=== PATIENT | female | born 1950 | race Caucasian/White ===

== ENCOUNTER → 2018-09-23 | Outpatient (CLI) | payer MEDICARE, BC, OTHER ==
[~2018-09-23] MED LIST: CENTTAB PO; CITR500T PO; GLUCPOW24 PO; HYDR-3715 PO; VIACTIV 500-5001 CHW PO
--- NOTE | 2018-09-24 13:33 | REP ---
Outside film interpretation: Bilateral screening and diagnostic mammography and focused breast sonography from [facility] dated August 31, 2018, September 02, 2018. Review of original reports is confusing. The diagnostic mammography report addendum created on September 03, 2018 concludes: BI-RADS category 2 benign finding recommending routine yearly followup. Before the addendum, a BI-RADS 4 conclusion was reported on the mammogram and there is a report of ultrasound recommending stereotactic biopsy based mammographic but not sonographic findings. I have prior films available from August 26, 2017. Findings: There are extensive post-treatment changes in the breast on the left with contour deformity and scarring in the upper outer quadrant and extensive benign branching macrocalcification. There are surgical clips in the left axilla. Findings are most compatible with post-treatment changes for breast cancer on the left. These are unchanged from the August 2017 prior study. There is no suspicious mammographic abnormality observed on the left. The diagnostic images on the left show no suspicious abnormality. On the right, the findings on the screening study from August 31, 2018 and the recall diagnostic study from September 02, 2018 show breast parenchymal markings to be unchanged from the 2018 exam as well. No suspicious mammographic finding is noted on the right. The sonography images of the right breast at 12 o'clock and right axilla show no suspicious abnormality. The left breast sonography images also show heterogeneous fibroglandular background echotexture but no suspicious sonographic finding. Impression: BI-RADS category 2 benign findings. Post-treatment changes extensively noted on the left but unchanged. No suspicious abnormality. Bilateral repeat screening mammography recommended in 1 year. Electronically Signed by Cisco Hurtado MD 09/24/2018 05:30 P
== END ==
LOC: M RAD 14:24
PROVIDERS: ATTEND Surgery
DX: Z85.3 Personal history of malignant neoplasm of breast (principal)

== ENCOUNTER → 2019-09-20 | Outpatient (CLI) | payer MEDICARE, BC ==
--- NOTE | 2019-10-07 10:48 | REPMRS ---
Patient History Patient has history of breast cancer. Digital Woman Screen Mammo: September 20, 2019 - Exam #: [id number] Bilateral CC and MLO view(s) were taken. Technologist: Rosa Reyes, Technologist Prior study comparison: August 26, 2017, bilateral digital mammo screening bilat, performed at [facility]. November 19, 2012, bilateral digital mammo screening bilat, performed at [facility]. November 18, 2011, bilateral digital mammo screening bilat, performed at [facility]. FINDINGS: The breast tissue is heterogeneously dense. This may lower the sensitivity of mammography. The Volpara volumetric breast density category is: C. There are stable post treatment changes in the left breast. There is a moderate amount of heterogeneously dense fibroglandular tissue which is fairly symmetric. There is no interval development of dominant mass, architectural distortion, or grouped microcalcification typical of malignancy. There has been no change in the appearance of the mammogram from the prior studies. 3-D tomosynthesis shows no additional findings. Assessment: BI-RADS/ACR category 2 mammogram. Benign Findings. Recommendation Routine screening mammogram of both breasts in 1 year (for women over age 40). This mammogram was interpreted with the aid of an FDA-approved computer-aided dectection system. Electronically Signed By: Flex Hurtado MD 10/07/19 [id number]
== END ==
LOC: M WHC 06:21
PROVIDERS: ATTEND Surgery
DX: Z12.31 Encounter for screening mammogram for malignant neoplasm of breast (principal); Z85.3 Personal history of malignant neoplasm of breast

== ENCOUNTER → 2020-10-09 | Outpatient (CLI) | payer MEDICARE, BC, OTHER ==
--- NOTE | 2020-10-09 10:17 | REPMRS ---
Patient History The patient states she has not had a clinical breast exam in over a year. Patient is postmenopausal, has history of cancer in the left breast at age 42, had previous chest radiation therapy at age 42, has history of cancer in the left breast at age 41, and had previous chemotherapy. Malignant lumpectomy of the left breast, 1992. No Hormone Replacement Therapy Moderna vaccine 06/01/20 right arm. 07/03/20 right arm. Patient states no breast complaints today. Patient has signed MRS History Sheet. Digital Woman Screen Mammo: October 09, 2020 - Exam #: [id number] Bilateral CC and MLO view(s) were taken. Technologist: Lupe Hnery, Prior study comparison: September 20, 2019, bilateral digital woman screen mammo performed at [facility]. August 26, 2017, bilateral digital mammo screening bilat, performed at [facility]. November 19, 2012, bilateral digital mammo screening bilat, performed at [facility]. FINDINGS: The breast tissue is heterogeneously dense. This may lower the sensitivity of mammography. The Volpara volumetric breast density category is: C. There are stable post treatment changes again noted in the left breast. There is a moderate amount of heterogeneously dense fibroglandular tissue which is fairly symmetric. There is no interval development of dominant mass, architectural distortion, or grouped microcalcification typical of malignancy. There has been no change in the appearance of the mammogram from the prior studies. 3-D tomosynthesis shows no additional findings. Assessment: BI-RADS/ACR category 2 mammogram. Benign Findings. Recommendation Routine screening mammogram of both breasts in 1 year (for women over age 40). This mammogram was interpreted with the aid of an FDA-approved computer-aided dectection system. Electronically Signed By: Flex Hurtado MD 10/09/20 [id number]
== END ==
LOC: M WHC 09:16
PROVIDERS: ATTEND Surgery
DX: Z12.31 Encounter for screening mammogram for malignant neoplasm of breast (principal); Z85.3 Personal history of malignant neoplasm of breast; Z92.21 Personal history of antineoplastic chemotherapy; Z92.3 Personal history of irradiation

== ENCOUNTER → 2020-10-28 | Outpatient (CLI) | payer MEDICARE, BC, OTHER ==
[~2020-10-28] MED LIST changes: +ATOR1TAB21; +CALCCAP4 PO; +CIDA500T2 PO; +CLAR10CA3 PO; +D31000TA2 PO; +FISH1000 PO; +HYDR12.55; +LOSA100T50; +MULTTAB61 PO; +VITA-175 PO; +VITA-243 PO
== END ==
LOC: M LABSMTC 10:46
PROVIDERS: ATTEND Anesthesiology
DX: Z01.812 Encounter for preprocedural laboratory examination (principal); Z20.822 Contact with and (suspected) exposure to COVID-19

== ENCOUNTER 2020-11-02 08:43 | Day surgery (SDC) | payer MEDICARE, BC, OTHER ==
[~2020-11-02] VITALS: Ht 160 cm; Wt 86.6 kg
[~2020-11-02 08:43] MED LIST changes: +LIDOCAINE 2% 100MG/5ML SDV (FOR ANES.) As Ordered ONE; +NS 1,000 ML IV ONE; +propofoL 200 MG/20 ML VIAL As Ordered ONE
--- NOTE | 2020-11-02 10:46 | ROOR ---
Patient Name: Nadine Galdamez Procedure Date: 11/02/2020 10:04 AM Date of : 1950 Age: 70 Room: [facility] Gender: Female Note Status: Finalized Procedure: Colonoscopy Indications: Screening in patient at increased risk: Family history of 1st-degree relative with colorectal cancer, Last colonoscopy: August 2015 Providers: Jefferson Silva MD Referring MD: Hailey CONTRERAS NP Requesting Provider: Medicines: Monitored Anesthesia Care Complications: No immediate complications. Procedure: Pre-Anesthesia Assessment: - Prior to the procedure, a History and Physical was performed, and patient medications and allergies were reviewed. The patient is competent. The risks and benefits of the procedure and the sedation options and risks were discussed with the patient. All questions were answered and informed consent was obtained. Patient identification and proposed procedure were verified by the physician, the nurse and the inhalation therapist in the procedure room. Mental Status Examination: normal. Airway Examination: normal oropharyngeal airway and neck mobility. Prophylactic Antibiotics: The patient does not require prophylactic antibiotics. Prior Anticoagulants: The patient has taken no previous anticoagulant or antiplatelet agents. ASA Grade Assessment: III - A patient with severe systemic disease. After reviewing the risks and benefits, the patient was deemed in satisfactory condition to undergo the procedure. The anesthesia plan was to use monitored anesthesia care (MAC). Immediately prior to administration of medications, the patient was re-assessed for adequacy to receive sedatives. The heart rate, respiratory rate, oxygen saturations, blood pressure, adequacy of pulmonary ventilation, and response to care were monitored throughout the procedure. The physical status of the patient was re-assessed after the procedure. The Colonoscope was introduced through the anus and advanced to the cecum, identified by appendiceal orifice and ileocecal valve. The colonoscopy was performed without difficulty. The patient tolerated the procedure well. The quality of the bowel preparation was excellent. Findings: The perianal and digital rectal examinations were normal. Multiple medium-mouthed diverticula were found in the sigmoid colon and descending colon. There was evidence of a prior end-to-end colo-rectal anastomosis in the recto-sigmoid colon. This was patent and was characterized by healthy appearing mucosa. Impression: - Diverticulosis in the sigmoid colon and in the descending colon. - Patent end-to-end colo-rectal anastomosis, characterized by healthy appearing mucosa. - No specimens collected. Recommendation: - Discharge patient to home. - Resume previous diet. - Continue present medications. Procedure Code(s): --- Professional --- G0105, Colorectal cancer screening; colonoscopy on individual at high risk Diagnosis Code(s): --- Professional --- Z80.0, Family history of malignant neoplasm of digestive organs Z98.0, Intestinal bypass and anastomosis status K57.30, Diverticulosis of large intestine without perforation or abscess without bleeding CPT copyright 2019 [employer]. All rights reserved. The codes documented in this report are preliminary and upon histology specialist review may be revised to meet current compliance requirements. Jefferson Silva MD Jefferson Silva MD 11/02/2020 10:45:52 AM Electronically signed by Jefferson Silva MD Number of Addenda: 0 Note Initiated On: 11/02/2020 10:04 AM Estimated Blood Loss: Estimated blood loss: none.
[2020-11-02 10:50] VITALS: BP 127/71
== END 2020-11-02 11:01 | disposition home or self-care (01) ==
LOC: M OPP 08:43
PROVIDERS: ATTEND Surgery
DX: Z12.11 Encounter for screening for malignant neoplasm of colon (principal); Z80.0 Family history of malignant neoplasm of digestive organs; K57.30 Diverticulosis of large intestine without perforation or abscess without bleeding; Z98.0 Intestinal bypass and anastomosis status; Z79.899 Other long term (current) drug therapy; Z88.2 Allergy status to sulfonamides; Z85.3 Personal history of malignant neoplasm of breast; Z92.21 Personal history of antineoplastic chemotherapy; Z92.3 Personal history of irradiation

== ENCOUNTER → 2021-10-12 | Outpatient (CLI) | payer MEDICARE, BC, OTHER ==
[~2021-10-12] MED LIST changes: -D31000TA2 PO; -LIDOCAINE 2% 100MG/5ML SDV (FOR ANES.) As Ordered ONE; +LOSA100T45; -LOSA100T50; -NS 1,000 ML IV ONE; +VITA100093 PO; -propofoL 200 MG/20 ML VIAL As Ordered ONE
== END ==
LOC: M WHC 09:44
PROVIDERS: ATTEND Surgery
DX: Z12.31 Encounter for screening mammogram for malignant neoplasm of breast (principal); Z85.3 Personal history of malignant neoplasm of breast; R92.1 Mammographic calcification found on diagnostic imaging of breast

== ENCOUNTER → 2022-10-15 | Outpatient (CLI) | payer MEDICARE, BC, OTHER ==
[~2022-10-15] MED LIST changes: -LOSA100T45; +LOSA100T46
== END ==
LOC: M WHC 11:54
PROVIDERS: ATTEND Physician Assistant
DX: Z12.31 Encounter for screening mammogram for malignant neoplasm of breast (principal)

== ENCOUNTER 2024-01-28 13:20 | Emergency (ER) | payer MEDICARE, BC, OTHER ==
[~2024-01-28] VITALS: Ht 160 cm; Wt 86.9 kg
[2024-01-28 16:35] LABS: BASO % 0.3 % (0.0-1.0); EOS % 0.3 % (0.0-3.0); HEMATOCRIT 41.3 % (36.0-47.0); HEMOGLOBIN 14.1 g/dl (12.0-15.5); LYMPH # 2.7 10^3/uL (1.5-5.0); LYMPH % 35.4 % (24.0-44.0); MEAN CORPUSCULAR HEMOGLOBIN 31.2 pg (27.0-33.0); MEAN CORPUSCULAR HGB CONC 34.1 g/dl (32.0-36.5); MEAN CORPUSCULAR VOLUME 91.4 fl (80.0-96.0); MONO # 1.2 10^3/uL (0.0-0.8); MONO % 15.7 % (2.0-8.0); NEUTROPHILS # 3.6 10^3/uL (1.5-8.5); NEUTROPHILS % 47.6 % (36.0-66.0); PLATELET COUNT, AUTOMATED 232 10^3/uL (150-450); RED BLOOD COUNT 4.52 10^6/uL (4.00-5.40); WHITE BLOOD COUNT 7.5 10^3/uL (4.0-10.0)
[2024-01-28 16:59] LABS: LIPASE 35 U/L (12-53)
[2024-01-28 17:02] LABS: ALBUMIN 4.2 G/DL (3.2-5.2); ALKALINE PHOSPHATASE 90 U/L (35-104); ALT/SGPT 26 U/L (7.0-40); AST/SGOT 22 U/L (<34); BILIRUBIN,DIRECT 0.2 MG/DL (<0.4); BILIRUBIN,TOTAL 0.7 MG/DL (0.3-1.2); BLOOD UREA NITROGEN 11 MG/DL (9-23); CALCIUM LEVEL 10.3 MG/DL (8.3-10.6); CARBON DIOXIDE LEVEL 30 MMOL/L (20-31); CHLORIDE LEVEL 102 MMOL/L (98-107); CREATININE FOR GFR 0.63 MG/DL (0.55-1.30); GLOMERULAR FILTRATION RATE > 60.0 (>39); GLUCOSE, FASTING 87 MG/DL (74-106); POTASSIUM SERUM 3.7 MMOL/L (3.5-5.1); SODIUM LEVEL 139 MMOL/L (136-145); TOTAL PROTEIN 8.5 G/DL (5.7-8.2)
[2024-01-28] MEDS ORDERED: ISOVUE-370 76% 100ML VIAL As Ordered ONE (17:14)
[2024-01-28] MEDS ORDERED: NITR100C3 PO (17:48)
[2024-01-28 17:55] VITALS: BP 135/67; TEMP 97.6; O2SAT 97
[2024-01-31] MEDS ORDERED: CEFD300C PO (08:35)
== END 2024-01-28 18:06 | disposition home or self-care (01) ==
LOC: M ED 13:20
DX: R10.9 Unspecified abdominal pain (principal); N39.0 Urinary tract infection, site not specified; K57.92 Diverticulitis of intestine, part unspecified, without perforation or abscess without bleeding; Z88.2 Allergy status to sulfonamides; Z79.02 Long term (current) use of antithrombotics/antiplatelets; Z79.899 Other long term (current) drug therapy; Z79.2 Long term (current) use of antibiotics
CPT/HCPCS: 36415; 74177; 80048; 80076; 81001; 83690; 85025; 87088; 87186; 99284; Q9967

== ENCOUNTER → 2024-04-20 | Outpatient (REF) | payer MEDICARE, BC ==
[~2024-04-20] MED LIST changes: +CEFD300C PO; +NITR100C3 PO
[2024-04-20 17:40] LABS: HEMOGLOBIN A1c 5.2 % (4.0-6.0)
[2024-04-20 17:50] LABS: ALBUMIN 3.9 G/DL (3.2-5.2); ALKALINE PHOSPHATASE 86 U/L (35-104); ALT/SGPT 22 U/L (7.0-40); AST/SGOT 20 U/L (<34); BILIRUBIN,TOTAL 0.6 MG/DL (0.3-1.2); BLOOD UREA NITROGEN 16 MG/DL (9-23); CALCIUM LEVEL 9.8 MG/DL (8.3-10.6); CARBON DIOXIDE LEVEL 27 MMOL/L (20-31); CHLORIDE LEVEL 105 MMOL/L (98-107); CHOLESTEROL LEVEL 170 MG/DL (<200); CREATININE FOR GFR 0.68 MG/DL (0.55-1.30); GLOMERULAR FILTRATION RATE > 60.0 (>39); GLUCOSE, FASTING 95 MG/DL (74-106); HDL CHOLESTEROL 51.4 MG/DL (>40); LDL CHOLESTEROL 79.8 MG/DL (<100); NON-HDL-C 118.6 MG/DL; POTASSIUM SERUM 4.1 MMOL/L (3.5-5.1); SODIUM LEVEL 141 MMOL/L (136-145); TOTAL PROTEIN 7.2 G/DL (5.7-8.2); TRIGLYCERIDES LEVEL 194 MG/DL (<150)
[2024-04-20 17:54] LABS: FREE T4 1.18 NG/DL (0.89-1.76); THYROID STIMULATING HORMONE 1.853 uIU/ML (0.55-4.78)
== END ==
LOC: M SFHCCLAY 11:05
PROVIDERS: ATTEND Nurse Practitioner Family
DX: I10 Essential (primary) hypertension (principal); E78.5 Hyperlipidemia, unspecified; Z85.3 Personal history of malignant neoplasm of breast; Z79.899 Other long term (current) drug therapy

== ENCOUNTER → 2024-10-21 | Outpatient (REF) | payer MEDICARE, BC ==
[2024-10-21 18:50] LABS: ALT/SGPT 22 U/L (7.0-40); AST/SGOT 22 U/L (<34); CALCIUM LEVEL 9.4 MG/DL (8.3-10.6); CARBON DIOXIDE LEVEL 30 MMOL/L (20-31); CHLORIDE LEVEL 104 MMOL/L (98-107); CHOLESTEROL LEVEL 191 MG/DL (<200); CHOLESTEROL RISK RATIO 3.12 (<5); CREATININE FOR GFR 0.68 MG/DL (0.55-1.30); GLOMERULAR FILTRATION RATE > 90.0 (>39); LDL CHOLESTEROL 93.3 MG/DL (<100); NON-HDL-C 129.9 MG/DL; POTASSIUM SERUM 4.3 MMOL/L (3.5-5.1); SODIUM LEVEL 144 MMOL/L (136-145); TRIGLYCERIDES LEVEL 183 MG/DL (<150)
== END ==
LOC: M SFHCCLAY 09:32
PROVIDERS: ATTEND Nurse Practitioner Family
DX: I10 Essential (primary) hypertension (principal); E78.5 Hyperlipidemia, unspecified; Z85.3 Personal history of malignant neoplasm of breast